=== PATIENT | female | born 1980 | race Caucasian/White ===

== ENCOUNTER → 2024-06-07 16:09 | Outpatient (CLI) | payer OTHER, SELFPAY ==
--- NOTE | 2024-06-07 16:16 | DIAB.GDA ---
Initial Gestational Diabetes Assessment Name: Sherry Ojeda Date: 06/07/24 Time: 410-515 Dx: Gestational Diabetes Provider: Chris CARLA: 08/04/24 Weeks: 31 Sherry presents for initial FH of T2Dm with father. Wants to know more about nutrition today. Has questions about sf substitutes. Drinking water and sweetened electrolytes sometimes and protein shake [employer]life. Since diagnosis x 1 week she has cut out bread, pasta, potatoes. Mostly eating meat and veggies. States she usually does not eat much CHO. Eating less than ACADEMIC SUPPORT COORDINATOR for CHO during and experiencing consistently elevated FBG. During her OB appt today she thought she was not checking FBG, but during this visit she says she forgot that she is checking and all are >95mg/dl. Diet Recall: 730a: 2 eggs, 2 turkey landers and half avocado, sprinkle cheese 12-130p: chicken Caesar salad, usually a salad. sn: nothing or veggies or celery and pb 530-6p: burger gilbert with salad tea unsweetened Anthropometrics: Ht: Wt: 227# at OB today Prepregnancy wt: 180# Physical Activity: Gym 3-4x per week for 1-2 hours, 2mi treadmill and 4mi on bike. Self-Monitoring Blood Glucose: Bought meter and strips out of pocket. using [employer] brand and would like to continue with use at this time. Checking 2 hours after meal. Plans to start FBG. Date Pre Post Pre Post Pre Post HS 05/31 104 131 104 06/01 105 133 113 3hr 06/02 97 115 95 06/03 102 95 94 121 06/04 103 86 99 06/05 103 114 06/06 104 107 06/07 106 88 Diabetes Medications: None Pertinent Labs: Completed glucose screen and OGTT. Unclear of results. Nutrition Rx: Carbohydrates: Meal: 30-45-g lunch and dinner; 30g breakfast Snack: 15-30g Nutrition Diagnosis: Altered nutrition related lab value r/t GDM dx aeb recent OGTT reported Inadequate CHO during r/t nutrition knowledge deficit aeb diet recall Intervention: This participant was very receptive. Provided appropriate educational handouts. Discussed the following topics: GDM pathophysiology and impact of hyperglycemia on mom and baby Risk for T2DM for mom and baby in the future Ways to reduce risk T2DM Plate Method, meal timing, carb counting, pairing macronutrients and spreading out CHO for better BG management Blood glucose goals (FBG: <95 and 1 hour <140 mg/dL or 2 hour <120mg/dl); importance of checking 4x per day (FBG and pc) Impact of macronutrients on blood glucose Recommended servings for carbohydrates at meals and snacks Brainstormed appropriate meal plan based on her food preferences Potential for insulin given FBG results Provided demo for injections and provided hand out for reinforcement Role of physical activity and following provider guidelines for safety Goals: Aim for 30g CHO at meals at this time Check BG 4x per day Follow-up: GARY CARR follow-up in one week via telehealth. RD will message OB recent BG results. Krystin Cosby RDN, LILLY Certified Diabetes Care and Religious Leader T: [phone] F: [phone] [email or web address] Thank you for this referral
== END ==
LOC: DIET 16:10
PROVIDERS: Referring Provider Student in an Organized Health Care Education/Training Program
DX: O24.419 Gestational diabetes mellitus in pregnancy, unspecified control (principal); Z3A.31 31 weeks gestation of pregnancy; Z71.3 Dietary counseling and surveillance; Z83.3 Family history of diabetes mellitus
CPT/HCPCS: 97802

== ENCOUNTER → 2024-06-11 08:35 | Outpatient (CLI) | payer OTHER, SELFPAY ==
--- NOTE | 2024-06-11 08:44 | DIAB.GDFU ---
Follow-up Gestational Diabetes Assessment Name: Sherry Ojeda Date: 06/11/24 Time: 830-9a Dx: Gestational Diabetes Provider: Chris CARLA: 08/04/24 Weeks: 32 Sherry presents for follow-up. Eating veggies most meals. Often skipping breakfast CHO. FBG seem to have improved though still having some elevations. Diet Recall: 730a: 2 eggs, 2 turkey landers and half avocado, sprinkle cheese +/- some rice 12-130p: leftover chx, veg, rice dish sn: nothing or veggies or celery and pb 530-6p: chx veg, rice dish OR protein, veg, sweet potatoes x 2/3 c Anthropometrics: Ht: Wt: 227# at OB 06/07 Prepregnancy wt: 180# Physical Activity: Gym 3-4x per week for 1-2 hours, 2mi treadmill and 4mi on bike. Self-Monitoring Blood Glucose: Bought meter and strips out of pocket. using [employer] and would like to continue with use at this time. Checking 2 hours after meal. FBG continue to be elevated, though today was in range. Will continue to check and message OB end of week if FBG are elevated. Date Pre Post Pre Post Pre Post HS 06/07 106 88 120 06/08 98 116 111 06/09 96 137 1hr 120 120 06/10 103 94 06/11 90 Diabetes Medications: None Pertinent Labs: Completed glucose screen and OGTT. Unclear of results. Nutrition Rx: Carbohydrates: Meal: 30-45-g lunch and dinner; 30g breakfast Snack: 15-30g Nutrition Diagnosis: Altered nutrition related lab value r/t GDM dx aeb recent OGTT reported Inadequate CHO during r/t nutrition knowledge deficit aeb diet recall - in progress Intervention: This participant was very receptive. Provided appropriate educational handouts. Discussed the following topics: BG results and trends When to contact OB with elevations Adding complex CHO to each meal Importance of checking FBG Goals: Aim for 30g CHO at meals at this time- improved Check BG 4x per day- improved Try a little fruit at breakfast- new Be sure to get FBG recorded- new Highlight where you are checking 1hour v 2hour pc- new If FBG are elevated this week, please message Dr. Perez on Monday- new Follow-up: GARY CARR follow-up in two weeks. Will see OB next week. Encouraged her to message OB by end of week if elevated FBG persist. Krystin Cosby RDN, [facility] Certified Diabetes Care and Retort Operator T: [phone] F: [phone] [email or web address] Thank you for this referral
== END ==
PROVIDERS: Referring Provider Student in an Organized Health Care Education/Training Program
DX: O24.419 Gestational diabetes mellitus in pregnancy, unspecified control (principal); Z3A.32 32 weeks gestation of pregnancy; Z71.3 Dietary counseling and surveillance
CPT/HCPCS: 97803

== ENCOUNTER → 2024-06-14 14:36 | Outpatient (CLI) | payer OTHER, SELFPAY ==
--- NOTE | 2024-06-14 14:37 | DI.US.S_ITS ---
PROCEDURE: US OB >= 14 WEEKS FETUS INDICATIONS: Low lying placenta; re-evaluate growth OUTSIDE/PRIOR DATING DATA: The calculations are made using the CARLA of 08/04/2024. TECHNIQUE: Real-time scanning was performed of the fetus, with image documentation and biometric measurements. Endovaginal scanning: Are performed COMPARISON: None. FINDINGS: General: A single living intrauterine gestation is present. Presentation: Vertex. Placenta: Placental position is anterior , without previa. Amniotic fluid index: 16.8 cm, normal range is 5-24 cm. Single deepest vertical pocket is 6.4 cm. heart rate: 149 beats per minute. Maternal cervical canal: 3.1 cm long. Normal lower limit is 2.5 cm. biometrics: Biparietal diameter: 8.1 cm, 32 weeks 3 days Head circumference: 30.8 cm, 34 weeks 2 days Abdominal circumference: 29.3 cm, 33 weeks 2 days Femur length: 6.3 cm, 32 weeks 5 days Clinically estimated gestational age: 32 weeks 5 days Composite gestational age from present scan: 33 weeks 1 days Estimated weight and percentile: 2126 g, 54% Other: Anterior uterine fibroid measuring 2.5 x 1.4 x 2.4 cm. IMPRESSION: 1. Single live intrauterine consistent with 33 weeks and 1 day. Normal growth with estimated weight in the 54th percentile. 2. Anterior placenta with inferior edge 5.5 cm from the internal cervical os. We strive to produce accurate, complete, and clear reports of imaging services. To assist us in improving patient care, this report was composed using standard report templates and voice recognition software. Therefore, it may contain abnormal punctuation, insertions and/or omissions. Occasional wrong-word or sound-alike substitutions may occur. Though we review the report and make efforts to correct it, we do recommend that the report be read carefully in proper context to recognize any text inaccuracies. Dictated by: Lisandro Christian M.D. on 06/14/2024 at 16:38 Approved by: Lisandro Christian M.D. on 06/14/2024 at 16:41
== END ==
PROVIDERS: Referring Provider Student in an Organized Health Care Education/Training Program; Visit Provider Student in an Organized Health Care Education/Training Program
DX: O44.43 Low lying placenta NOS or without hemorrhage, third trimester (principal); O24.419 Gestational diabetes mellitus in pregnancy, unspecified control; Z3A.33 33 weeks gestation of pregnancy
CPT/HCPCS: 76811

== ENCOUNTER → 2024-06-28 13:55 | Outpatient (CLI) | payer OTHER, SELFPAY ==
--- NOTE | 2024-06-28 14:02 | DIAB.GDFU ---
Addendum entered by Krystin Cosby 07/05/24 17:10: Called to check in on pt newly starting NPH. LVM. Original Note: Follow-up Gestational Diabetes Assessment Name: Sherry Ojeda Date: 06/28/24 Time: 2-3p Dx: Gestational Diabetes Provider: Chris CARLA: 08/04/24 Weeks: 34 Sherry presents for follow-up accompanied by her mother. Experiencing some elevated FBG and some elevations after breakfast. Overall, following lower carb recs, in fact breakfast is almost always under 30g CHO. Most dinner and lunches 30-45g CHO, reviewed food journal. States she spoke with OB today and some potential recs of starting insulin, which this RD agrees with. She is feeling very hesitant with starting insulin therapy. She completed a return insulin injection demo today and did very well. Last Visit Diet Recall: 730a: 2 eggs, 2 turkey landers and half avocado, sprinkle cheese +/- some rice 12-130p: leftover chx, veg, rice dish sn: nothing or veggies or celery and pb 530-6p: chx veg, rice dish OR protein, veg, sweet potatoes x 2/3 c Anthropometrics: Ht: Wt: 229# 06/28 227# at OB 06/07 Prepregnancy wt: 180# Physical Activity: Gym 3-4x per week for 1-2 hours, 2mi treadmill and 4mi on bike. Self-Monitoring Blood Glucose: checking FBG and 2 hour. If starting insulin, offered CGM option, she declined. Date Pre Post Pre Post Pre Post HS 06/22 90 122 1h 06/23 128 103 06/24 96 140 1h 104 109 10 113 94 107 06/26 96 94 120 06/27 96 120 116 99 06/28 95 103 Diabetes Medications: None Pertinent Labs: Completed glucose screen and OGTT. Unclear of results. Nutrition Rx: Carbohydrates: Meal: 30-45-g lunch and dinner; 30g breakfast Snack: 15-30g Nutrition Diagnosis: Altered nutrition related lab value r/t GDM dx aeb recent OGTT reported Inadequate CHO during r/t nutrition knowledge deficit aeb diet recall - in progress Intervention: This participant was very receptive. Provided appropriate educational handouts. Discussed the following topics: BG results and trends Return demo for insulin injection Discussion of importance of well managed BG during Medications for GDM in , gold std insulin recs and reducing risk of T2DM Recent blood sugar results and impact of food and hormones Review of macronutrient recommendations during Benefits, resources, and nutrition for recommendations for nutrition and physical activity recommendations for T2DM risk reduction - OGTT at 6-12 weeks - Checking blood sugars twice per week (goal: fasting <100 mg/dL and 2 hour pc <140 mg/dL)until 6 week checkup Goals: Try a little fruit at breakfast- met Be sure to get FBG recorded- improved/in progress Highlight where you are checking 1hour v 2hour pc- met If FBG are elevated this week, please message Dr. Perez on Monday- not met Chat with OB about insulin rx prn- new Check BG 4x per day- new Follow-up: GARY CARR follow-up in one week via phone and 2 weeks 1:1 Krystin Cosby RDN, LILLY Certified Diabetes Care and Contact Center Specialist T: [phone] F: [phone] [email or web address] Thank you for this referral
== END ==
PROVIDERS: Referring Provider Student in an Organized Health Care Education/Training Program
DX: O24.419 Gestational diabetes mellitus in pregnancy, unspecified control (principal); Z3A.34 34 weeks gestation of pregnancy; Z71.3 Dietary counseling and surveillance
CPT/HCPCS: G0108

== ENCOUNTER → 2024-07-12 18:13 | Outpatient (CLI) | payer OTHER, SELFPAY ==
--- NOTE | 2024-07-12 18:15 | DIAB.GDFU ---
Follow-up Gestational Diabetes Assessment Name: Sherry Ojeda Date: 07/12/24 Time: 5-530p Dx: Gestational Diabetes Provider: Chris CARLA: 08/04/24 Weeks: 36 Sherry presents for follow-up virtually via [facility]. Started insulin on 07/04 16u NPH started, FBG improved but still running 84-99mg/dl. Wants to eat dates, raspberries, and raspberry leaf tea to help with softening cervix per report. Curious about nutrition and impact on DM. Insulin storage questions. Eating more fruit per report. Anthropometrics: Ht: Wt: 229# 06/28 227# at OB 06/07 Prepregnancy wt: 180# Physical Activity: Gym 3-4x per week for 1-2 hours, 2mi treadmill and 4mi on bike. Self-Monitoring Blood Glucose: Ran out of strips, but plans to receive them tonight via mail. Often skipping lunch or eating a late breakfast. Offered CGM last visit, declined. Slight improved BG since starting NPH. Date Pre Post Pre Post Pre Post Notes 07/04 97 107 120 119 1 hour NPH that night 07/05 91 116 106 1 hour 120 07/06 99 106 07/07 84 120 07/08 95 103 100 07/09 93 120 106 07/10 95 119 120 07/11 99 139 1 hour after snack 120 07/12 95 113 Diabetes Medications: 16u NPH Pertinent Labs: Completed glucose screen and OGTT. Unclear of results. Nutrition Rx: Carbohydrates: Meal: 30-45-g lunch and dinner; 30g breakfast Snack: 15-30g Nutrition Diagnosis: Altered nutrition related lab value r/t GDM dx aeb recent OGTT reported Inadequate CHO during r/t nutrition knowledge deficit aeb diet recall - improved Nutrition and food related knowledge deficit r/t specific food questions and impact on BG aeb pt report- new Intervention: This participant was very receptive. Provided appropriate educational handouts. Discussed the following topics: BG results and trends Medication Management: insulin recs Date nutrition and carb content Pairing CHO and protein for snacks Tea impact on BG as long as unsweet Fruit with higher fiber, ie berries Goals: Chat with OB about insulin rx prn- met Check BG 4x per day- in progress Increase to 18u NPH tomorrow prn- new Pair pro with fruit- new Follow-up: RDN KRISHES follow-up in one week via messaging BG and then prn thereafter. Krystin Cosby RDN, LILLY Certified Diabetes Care and Reservoir Engineering Consultant T: [phone] F: [phone] [email or web address] Thank you for this referral
== END ==
PROVIDERS: Referring Provider Student in an Organized Health Care Education/Training Program
DX: O24.414 Gestational diabetes mellitus in pregnancy, insulin controlled (principal); Z3A.36 36 weeks gestation of pregnancy; Z71.3 Dietary counseling and surveillance
CPT/HCPCS: 97803

== ENCOUNTER → 2024-07-15 13:28 | Outpatient (CLI) | payer OTHER, SELFPAY ==
[2024-07-16 11:41] LABS: Strep Grp B PCR NEG for Grp B Strep
== END ==
PROVIDERS: Visit Provider Student in an Organized Health Care Education/Training Program
DX: Z36.85 Encounter for antenatal screening for Streptococcus B (principal)
CPT/HCPCS: 87653

== ENCOUNTER 2024-07-15 14:01 | Outpatient (CLI) | payer OTHER, SELFPAY ==
--- NOTE | 2024-07-15 15:30 | PM.OBTRLD ---
Visit Information Visit Information Date of evaluation: 07/15/24 Primary OB Provider: Sharron Perez Reason for Evaluation: Yes non-stress test [facility] Medical History (Updated 06/28/24 @ 17:02 by Sharron Perez DO) Osteomyelitis (~1985) Surgical History (Updated 06/04/24 @ 08:42 by Joanne Bryant RN) H/O dilation and curettage [place] teeth extracted Family History (Updated 06/04/24 @ 08:46 by Joanne Bryant RN) Father Diabetes mellitus Mother Hypothyroidism Ovarian cancer Grandmother Hypertension Diabetes mellitus Grandfather Hypertension Diabetes mellitus Grandfather Diabetes mellitus Social History marital status: number of children: 0 household members: spouse and family (parents) lives independently: Yes caregiver/support person: No housing: other (rented room in a house) pets and animals: No education level: high school (dropped out of 12th grade) occupational status: unemployed current occupational exposures/hazards: No special michelle needs: No travel history: recent (domestic only) seatbelt use: always helmet use: Yes water heater temp set < 120 deg: Yes working smoke detector in home: Yes fire extinguisher in home: Yes carbon monox detector in home: Yes firearms in home: No do you feel safe at home: Yes Smoking Status: Former smoker (quit smoking July 2023) Tobacco: How many years used: 10 (~1/2PPD) second hand exposure: No alcohol intake: former (not since ~2016) substance use type: does not use during the past year weight has: other (wide fluctuations) well-balanced diet: daily or most days daily servings fruits/ve or more times/day caffeine: No Type(s) of exercise: aerobic, bicycling (stationary bike) and resistance training frequency: 3-4 times per week Evaluation Evaluation Baseline heart rate: 140 Variability: Moderate (11-25) monitor accelerations: Present Monitor Decelerations: Absent Category of Tracing: Reactive Diagnosis, Plan/Disposition Final Diagnosis (1) Gestational diabetes mellitus, class A2: Status: Acute (2) Advanced maternal age (AMA), 40 years or greater: Status: Acute Plan/Disposition Plan: Follow up next week as scheduled OB Disposition: home
== END 2024-07-15 14:53 | disposition home or self-care (01) ==
LOC: LABOR 14:06 → OB 07-18 06:09
PROVIDERS: Referring Provider Student in an Organized Health Care Education/Training Program; Visit Provider Student in an Organized Health Care Education/Training Program
DX: O24.414 Gestational diabetes mellitus in pregnancy, insulin controlled (principal); O09.513 Supervision of elderly primigravida, third trimester; Z3A.37 37 weeks gestation of pregnancy
CPT/HCPCS: 59025; 87653; G0378; G0379

== ENCOUNTER 2024-07-22 14:09 | Observation (INO) | payer OTHER, SELFPAY ==
--- NOTE | 2024-07-22 15:00 | PM.OBTRLD ---
Visit Information Visit Information Date of evaluation: 07/22/24 Primary OB Provider: Sharron Perez On-call OB Provider: Kera Hernandez Reason for Evaluation: Yes non-stress test non-stress test reason: diabetes (Insulin requiring) Vital Signs Vital Signs: Blood pressure 132/76, pulse 74 PFSH Medical History (Updated 07/22/24 @ 15:03 by Kera Hernandez MD) Osteomyelitis (~1985) Surgical History (Updated 06/04/24 @ 08:42 by Joanne Bryant, RN) H/O dilation and curettage [place] teeth extracted Family History (Updated 06/04/24 @ 08:46 by Joanne Bryant, RN) Father Diabetes mellitus Mother Hypothyroidism Ovarian cancer Grandmother Hypertension Diabetes mellitus Grandfather Hypertension Diabetes mellitus Grandfather Diabetes mellitus Social History marital status: number of children: 0 household members: spouse and family (parents) lives independently: Yes caregiver/support person: No housing: other (rented room in a house) pets and animals: No education level: high school (dropped out of 12th grade) occupational status: unemployed current occupational exposures/hazards: No special michelle needs: No travel history: recent (domestic only) seatbelt use: always helmet use: Yes water heater temp set < 120 deg: Yes working smoke detector in home: Yes fire extinguisher in home: Yes carbon monox detector in home: Yes firearms in home: No do you feel safe at home: Yes Smoking Status: Former smoker (quit smoking July 2023) Tobacco: How many years used: 10 (~1/2PPD) second hand exposure: No alcohol intake: former (not since ~2016) substance use type: does not use during the past year weight has: other (wide fluctuations) well-balanced diet: daily or most days daily servings fruits/ve or more times/day caffeine: No Type(s) of exercise: aerobic, bicycling (stationary bike) and resistance training frequency: 3-4 times per week Evaluation Evaluation Baseline heart rate: 130 Variability: Moderate (11-25) monitor accelerations: Present Monitor Decelerations: Absent Category of Tracing: Reactive Status: Category l Diagnosis, Plan/Disposition Final Diagnosis (1) Gestational diabetes mellitus, class A2: Status: Acute (2) Advanced maternal age (AMA), 40 years or greater: Status: Acute (3) 38 weeks gestation of : Status: Acute Plan/Disposition Plan: Reactive nonstress test. Continue routine OB visits and NSTs OB Disposition: home
== END 2024-07-22 15:00 | disposition home or self-care (01) ==
PROVIDERS: Admitting Provider Student in an Organized Health Care Education/Training Program; Referring Provider Student in an Organized Health Care Education/Training Program; Visit Provider Student in an Organized Health Care Education/Training Program
DX: O24.414 Gestational diabetes mellitus in pregnancy, insulin controlled (principal); O09.513 Supervision of elderly primigravida, third trimester; Z3A.38 38 weeks gestation of pregnancy
CPT/HCPCS: 59025; G0378; G0379

== ENCOUNTER 2024-07-30 12:57 | Outpatient (CLI) | payer OTHER, SELFPAY ==
--- NOTE | 2024-07-30 20:40 | PM.OBTRLD ---
Visit Information Visit Information Date of evaluation: 07/30/24 Primary OB Provider: Sharron Perez Reason for Evaluation: Yes non-stress test COUNTS INCLUDE 234 BEDS AT [facility] Medical History (Updated 07/30/24 @ 20:38 by Sharron Perez DO) Osteomyelitis (~1985) Surgical History (Updated 06/04/24 @ 08:42 by Joanne Bryant RN) H/O dilation and curettage [place] teeth extracted Family History (Updated 06/04/24 @ 08:46 by Joanne Bryant RN) Father Diabetes mellitus Mother Hypothyroidism Ovarian cancer Grandmother Hypertension Diabetes mellitus Grandfather Hypertension Diabetes mellitus Grandfather Diabetes mellitus Social History marital status: number of children: 0 household members: spouse and family (parents) lives independently: Yes caregiver/support person: No housing: other (rented room in a house) pets and animals: No education level: high school (dropped out of 12th grade) occupational status: unemployed current occupational exposures/hazards: No special michelel needs: No travel history: recent (domestic only) seatbelt use: always helmet use: Yes water heater temp set < 120 deg: Yes working smoke detector in home: Yes fire extinguisher in home: Yes carbon monox detector in home: Yes firearms in home: No do you feel safe at home: Yes Smoking Status: Former smoker (quit smoking July 2023) Tobacco: How many years used: 10 (~1/2PPD) second hand exposure: No alcohol intake: former (not since ~2016) substance use type: does not use during the past year weight has: other (wide fluctuations) well-balanced diet: daily or most days daily servings fruits/ve or more times/day caffeine: No Type(s) of exercise: aerobic, bicycling (stationary bike) and resistance training frequency: 3-4 times per week Evaluation Evaluation Baseline heart rate: 140 Variability: Moderate (11-25) monitor accelerations: Present Monitor Decelerations: Absent Contraction Frequency (minutes): 0 Category of Tracing: Reactive Diagnosis, Plan/Disposition Final Diagnosis (1) Gestational diabetes mellitus, class A2: Status: Acute (2) Advanced maternal age (AMA), 40 years or greater: Status: Acute Plan/Disposition OB Disposition: home
== END 2024-07-30 13:55 | disposition home or self-care (01) ==
LOC: LABOR 13:02 → OB 16:09
PROVIDERS: Referring Provider Student in an Organized Health Care Education/Training Program; Visit Provider Student in an Organized Health Care Education/Training Program
DX: O24.419 Gestational diabetes mellitus in pregnancy, unspecified control (principal); O09.513 Supervision of elderly primigravida, third trimester; Z3A.39 39 weeks gestation of pregnancy
CPT/HCPCS: 59025; G0378; G0379

== ENCOUNTER 2024-08-05 19:44 | Inpatient (IN) | payer OTHER, SELFPAY ==
[2024-08-05 20:32] VITALS: BP 140/77
[2024-08-05 22:39] LABS: Add Manual Diff / Slide Review NO; Basophils Absolute Auto 0 /uL (0-100); Basophils Percent Auto 0.3 % (0-2); Eosinophils Absolute Auto 0 /uL (0-450); Eosinophils Percent Auto 0.5 % (2-4); Hematocrit 36.8 % (36-46); Hemoglobin 12.5 g/dL (12.0-16.0); Lymphocytes Absolute Auto 1400 /uL (1100-4500); Lymphocytes Percent Auto 14.8 % (25-40); Mean Corpuscular HGB Conc 33.8 % (30-36); Mean Corpuscular Hemoglobin 30.8 PG (26-34); Monocytes Absolute Auto 600 /uL (0-900); Neutrophils Absolute Auto 7600 /uL (1500-7000); Neutrophils Percent Auto 78.4 % (50-75); Platelet Count 176 X10^3/uL (150-400); Red Blood Cell Count 4.05 X10^6/uL (4.0-5.2); Red Cell Distribution Width 13.3 % (11.6-14.8); White Blood Cell Count 9.7 X10^3/uL (4.5-11.0)
[2024-08-05] MEDS: miSOPROStoL 25 MCG TABLET VAG (23:30)
[2024-08-06] MEDS: miSOPROStoL 25 MCG TABLET VAG ×3 (03:30→12:40)
--- NOTE | 2024-08-06 07:59 | P.HPOB_ITS ---
OB HPI Date/Time Date of admission: 08/06/24 Date Patient Seen: 08/06/24 Time Patient Seen: 08:00 History of Present Condition Chief complaint: induction of labor CARLA Calculator 2 Estimated Delivery Date Method Current WG Current Estimate 08/04/24 Manual 40w 2d Other Estimates 07/08/24 LMP (Uncertain) 44w 1d : 2 Para: 0 Narrative: 43yo at 40+2wks admitted overnight for induction of labor due to GDMA2 and AMA (>40yo). She reports feeling some cramping with cytotec, otherwise denies vaginal bleeding or leaking fluid. care: good care Dating criteria OB: LMP confirmed by 1st trimester US Ultrasounds: normal mid trimester US Obstetrical complications: gestational diabetes Medical complications OB: none Narrative: Ultrasound Ultrasound Details:: US 06/14/24: resolved low-lying placenta, EFW 54%ile Specific Issues/Plans (DO NOT discuss TAB in front of anyone else) [x] cfDNA- low risk XX; [x] CF/SMA/alpha thal/SC- neg Gestational Diabetes A2 (on 18u NPH qHS):?1hr 212, 3hr 113/267/176/113;? 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 [?x ] growth sono -54% at 32wks;?[? ] IOL (39 ? 39+6 weeks) AMA (>40yo):?? [ x] growth sono 32wks- 54%ile; [x? ] Weekly NSTs at 36 wks; [x? 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 and low lying placenta Prefers unmedicated delivery if vaginal delivery possible Leonel Assigned to Chris Indications Indication for induction OB: gestational diabetes and other (advanced maternal age) Preadmission Labs Last OB Lab Results: 2 Blood Type A Positive 08/05/24 22:16 Antibody Screen Negative 08/05/24 22:16 Hct 36.8 % (36-46) 08/05/24 22:06 Hgb 12.5 g/dL (12.0-16.0) 08/05/24 22:06 Group B Strep (PCR) Neg for grp b strep 07/15/24 13:28 -: Chlamydia screen: negative, Gonorrhea screen: negative and Urine: negative Genetic Screens: Cell-free DNA: Normal External Labs -: Urine: negative Prior (ies) Past Pregnancies Del. Date GA/Weeks Labor Lgth Wt Sex Route Outcome Anesthesia Place Delv Breastfeed Preg Comp Name 07/17/99 ? elective Delivery Date: 07/17/99 Last Updated by: Joanne Bryant RN D&C, no complications Evaluation Evaluation Baseline heart rate: 120 Variability: Moderate (11-25) monitor accelerations: Present Monitor Decelerations: Absent Status: Category l Dilation: Closed Effacement: 0-30% station: -3 Position of cervix: posterior Consistency: soft Durán score: 2 PFSH Medical History (Updated 07/30/24 @ 20:38 by Sharron Perez DO) Osteomyelitis (~1985) Surgical History (Updated 06/04/24 @ 08:42 by Joanne Bryant RN) H/O dilation and curettage [place] teeth extracted Family History (Updated 06/04/24 @ 08:46 by Joanne Bryant RN) Father Diabetes mellitus Mother Hypothyroidism Ovarian cancer Grandmother Hypertension Diabetes mellitus Grandfather Hypertension Diabetes mellitus Grandfather Diabetes mellitus Social History marital status: number of children: 0 household members: spouse and family (parents) lives independently: Yes caregiver/support person: No housing: other (rented room in a house) pets and animals: No education level: high school (dropped out of 12th grade) occupational status: unemployed current occupational exposures/hazards: No special michelle needs: No travel history: recent (domestic only) seatbelt use: always helmet use: Yes water heater temp set < 120 deg: Yes working smoke detector in home: Yes fire extinguisher in home: Yes carbon monox detector in home: Yes firearms in home: No do you feel safe at home: Yes Smoking Status: Former smoker Tobacco: How many years used: 10 (~1/2PPD) second hand exposure: No alcohol intake: former (not since ~2016) substance use type: does not use during the past year weight has: other (wide fluctuations) well-balanced diet: daily or most days daily servings fruits/ve or more times/day caffeine: No Type(s) of exercise: aerobic, bicycling (stationary bike) and resistance training frequency: 3-4 times per week Meds Home Medications and Allergies Home Medications Medication Instructions Recorded Confirmed Type docosahexaenoic acid 200 mg 400 mg PO DAILY 06/04/24 07/30/24 History capsule (DHA from Algae) vitamin-ferrous sulfate tab PO 06/04/24 07/30/24 History 27 mg iron-folic acid 0.8 mg tablet pen needle, diabetic 31 gauge x #100 ea 07/04/24 07/30/24 Rx 5/16 (Comfort EZ Pen [place]) insulin NPH isoph U-100 human 100 18 unit SUBCUT .qhs 08/05/24 08/05/24 History unit/mL (3 mL) subcutaneous pen (Humulin N NPH U-100 Insulin KwikPen) Allergies Allergy/AdvReac Type Severity Reaction Status Date / Time Penicillins Allergy Intermediate Hives Verified 07/30/24 14:06 Review of Systems Review of Systems ROS: Yes All systems reviewed with the patient and are negative except as otherwise documented OB Exam Vital signs Blood Pressure: 140/77 Pulse Rate: 93 Temperature: 98.2 F HENMT Head: normal to inspection Resp Effort & Inspection: normal respiratory effort and able to speak in complete sentences Cardio Rate: regular rate Rhythm: regular rhythm Extremities Lower extremity: Yes normal to inspection GI Other: gravid, nontender, nondistended Other: EFW 3800g Objective Labs 08/05/24 22:06 Labs: Laboratory Results - last 24 hr 08/05/24 08/05/24 22:06 22:16 WBC 9.7 RBC 4.05 Hgb 12.5 Hct 36.8 MCV 91.0 MCH 30.8 MCHC 33.8 RDW 13.3 Plt Count 176 Neut % (Auto) 78.4 H Lymph % (Auto) 14.8 L [place] % (Auto) 6.0 Eos % (Auto) 0.5 L Baso % (Auto) 0.3 Neut # (Auto) 7600 H Lymph # (Auto) 1400 [place] # (Auto) 600 Eos # (Auto) 0 Baso # (Auto) 0 Blood Type A Positive Antibody Screen Negative Assessment and Plan Assessment and Plan Assessment and Plan narrative: 43yo at 40+2wks admitted for induction of labor. Her induction was started overnight with cytotec, last dose this morning at 0745. -CBC, T&S on admission -continuous EFM -epidural PRN -GBS neg, ppx not indicated -PPH risk low -VTE risk low, SCDs with epidural -anticipate L&D Counseling: Common procedures and interventions related to the management of were explained to the patient, including assistance at vaginal delivery with episiotomy, vacuum, or forceps, use of medications to stop premature labor or induce labor, and assessment including auscultation (listening to the heart), use of electronic monitoring (external and / or internal), and use of scalp electrode and/or intrauterine pressure catheter.? It was also explained that approximately 20-30% of mothers have a need for delivery during their labor course. It was explained to the patient that , labor and delivery are ordinarily normal physiological events and can be expected to provide a healthy outcome for mother and baby in the majority of cases. However, there are complications that may arise during , labor, and delivery, such as: hemorrhage requiring administration of blood and/or blood products, surgical intervention, possibly even hysterectomy for life-saving purposes; possibility of infection requiring antibiotics, prolonged hospital stay, and rarely surgical intervention; possibility of blood clots;? possibility of retained products of conception requiring surgical intervention;? possibility of serious tears or injury to the vagina, cervix, perineum, or rectum;? possibility of injury to abdominal structures if delivery is required;? and rarely maternal or may occur. Time-Based Coding :: [30min] spent with patient and on the chart (including review of chart, obtaining history, exam, reviewing outside data, placing orders, documenting exam and treatment plan, and counseling patient) on [08/06/24].
[2024-08-06 08:17] VITALS: BP 140/77; PULSE 93; TEMP 36.8
--- NOTE | 2024-08-06 12:17 | P.PNOB_ITS ---
Date/Time Date Patient Seen: 08/06/24 Time Patient Seen: 12:17 Pain Control Pain control: tolerating well Pelvic Exam Dilation (cm): 0 Effacement (%): 25 station: -3 Contractions Contraction frequency (min): 2 Contraction pattern: Irregular Contraction intensity: Moderate Status status: Category l Heart Rate Baseline: 130 Monitor Accelerations: Present Monitor Decelerations: Absent Monitor Variability: Moderate Assessment and Plan Assessment: induction ongoing Plan: continuous present management Comments: 43yo at 40+2wks undergoing induction of labor. She is s/p 3 doses of v aginal cytotec. On my exam now, she is externally dilated, but not open internally yet. Otherwise her cervix is soft and effacing. Also noted to have several mild range blood pressures this morning. -recommend PIH labs drawn -plan for 1 more dose of cytotec, then hopefully placing a ayon balloon this afternoon -discussed plan of care, and all her and her family members questions were answered at this time
--- NOTE | 2024-08-06 16:35 | PM.OBPNLAB ---
Date/Time Date Patient Seen: 08/06/24 Time Patient Seen: 16:36 Pain Control Pain control: tolerating well Pelvic Exam Dilation (cm): 1 Effacement (%): 25 station: -3 Amniotic membrane status: Intact Contractions Contraction frequency (min): 2 Contraction pattern: Irregular Contraction intensity: Moderate Status status: Category l Heart Rate Baseline: 130 Monitor Accelerations: Present Monitor Decelerations: Absent Monitor Variability: Moderate Assessment and Plan Assessment: induction ongoing Plan: continuous present management Comments: 43yo at 40+2wks undergoing induction of labor. She is s/p 4 doses of vaginal cytotec. Ayon balloon was plaed with 60cc of saline. Patient tolerated well. Has continued to have mild range blood pressures today, labs have not been drawn yet. Asymptomatic. -advised that PIH labs be done in the next hour, with an IV start placed -discussed with patient starting pitocin with the ayon balloon, and patient was hesitant to start at this time; will need to continue to educate regarding indication and reasoning for pitocin augmentation -discussed plan of care, and advised patient that I will be signing over her labor management to my colleague Dr. Guerra
[2024-08-06] MEDS: LACTATED RINGERS 1,000 ML 100 ML IV (17:45)
[2024-08-06] MEDS: OXYTOCIN PREMIX 30 UNIT/500 ML PLAST..BAG IV (17:45)
[2024-08-06 18:04] LABS: Add Manual Diff / Slide Review NO; Basophils Absolute Auto 100 /uL (0-100); Basophils Percent Auto 0.6 % (0-2); Eosinophils Absolute Auto 0 /uL (0-450); Eosinophils Percent Auto 0.3 % (2-4); Hematocrit 39.2 % (36-46); Hemoglobin 13.1 g/dL (12.0-16.0); Lymphocytes Absolute Auto 1300 /uL (1100-4500); Lymphocytes Percent Auto 12.4 % (25-40); Mean Corpuscular HGB Conc 33.5 % (30-36); Mean Corpuscular Hemoglobin 30.7 PG (26-34); Mean Corpuscular Volume 91.7 fL (80-100); Monocytes Absolute Auto 600 /uL (0-900); Monocytes Percent Auto 5.3 % (3-14); Neutrophils Absolute Auto 8500 /uL (1500-7000); Neutrophils Percent Auto 81.4 % (50-75); Platelet Count 184 X10^3/uL (150-400); Red Blood Cell Count 4.27 X10^6/uL (4.0-5.2); Red Cell Distribution Width 13.3 % (11.6-14.8); White Blood Cell Count 10.5 X10^3/uL (4.5-11.0)
[2024-08-06 18:15] LABS: Alanine Aminotransferase 34 IU/L (<35); Albumin 3.7 g/dL (3.5-5.0); Albumin Globulin Ratio 1.2 (1.0-2.8); Alkaline Phosphatase 161 U/L (38-126); Aspartate Aminotransferase 35 IU/L (14-36); BUN Creatinine Ratio 22.2 (6-22); Bilirubin Total 0.2 mg/dL (0.2-1.3); Blood Urea Nitrogen 14 mg/dL (7-17); Calcium 9.7 mg/dL (8.4-10.2); Carbon Dioxide 18 mmol/L (22-32); Chloride 106 mmol/L (98-107); Estimated Glomerular Filt Rate > 60 mL/min (>60); Glucose 92 mg/dL (70-100); HEMOLYSIS < 15 (0-50); Potassium 4.1 mmol/L (3.4-5.1); Sodium 132 mmol/L (137-145); Total Protein 6.7 g/dL (6.3-8.2)
[2024-08-06 18:50] LABS: Creatinine Urine Random 78.39 mg/dL; Protein (Total) Urine Random 23 mg/dL (0-12); Protein Creatinine Ratio Urine 0.29 GRAM/24H
[2024-08-06 21:42] LABS: Uric Acid 3.4 mg/dL (2.5-6.2)
[2024-08-07] MEDS: INSULIN LISPRO 100 UNIT/ML 3ML VIAL SUBCUT (09:49)
--- NOTE | 2024-08-07 11:01 | PM.OBPNLAB ---
Date/Time Date Patient Seen: 08/07/24 Time Patient Seen: 10:15 Pain Control Pain control: tolerating well Pelvic Exam Dilation (cm): 4 Effacement (%): 50 station: -3 Amniotic membrane status: Intact Contractions Contractions on admission: none Monitor mode: External Pitocin rate (mU/min): 17 Contraction frequency (min): 3 Contraction pattern: Irregular Contraction intensity: Moderate Status status: Category l Heart Rate Baseline: 140 Monitor Accelerations: Present Monitor Decelerations: Absent Monitor Variability: Moderate Assessment and Plan Assessment: induction ongoing Plan: continuous present management Comments: 43yo at 40w3d undergoing induction of labor for GDMA2. #mIOL: - She is s/p 4 doses of vaginal cytotec. Patricio balloon was placed, fell out within an hour yesterday evening then pitocin started - pit currently at 17mu/min - SVE unchanged from 6pm last night when Pit was started - recommended AROM with IUPC placement but pt declines #GDMA2: continue present management per primary OB - glucose checks q4h in latent labor, q2h in active - SSI correction
[2024-08-07] MEDS: LACTATED RINGERS 1,000 ML 100 ML IV ×2 (13:08→20:16)
--- NOTE | 2024-08-07 13:25 | PM.OBPNLAB ---
Date/Time Date Patient Seen: 08/07/24 Time Patient Seen: 12:45 Pelvic Exam Dilation (cm): 4 Effacement (%): 50 station: -3 Amniotic membrane status: Intact Contractions Contractions on admission: none Monitor mode: External Pitocin rate (mU/min): 25 Contraction frequency (min): 3 Contraction pattern: Irregular Contraction intensity: Moderate Status status: Category l Heart Rate Baseline: 130 Monitor Accelerations: Present Monitor Decelerations: Absent Monitor Variability: Moderate Assessment and Plan Assessment: induction ongoing Plan: continuous present management Comments: 43yo at 40w3d undergoing induction of labor for GDMA2. Discussion held [facility] pt about AROM for continued augmentation and she declines. Reviewed risks of hemorrhage with prolonged pit use. Also discussed risk of arrest of desecent/dilation as possible indicator of LGA. #mIOL: - She is s/p 4 doses of vaginal cytotec. Patricio balloon was placed, fell out within an hour yesterday evening then pitocin started - pit currently at 17mu/min - SVE unchanged from 6pm last night when Pit was started - recommended AROM with IUPC placement but pt declines so will continue to increase pit and repeat discussion in 2-3 hours after maxed out on pit - FHT reassuring #GDMA2: continue present management per primary OB - glucose checks q4h in latent labor, q2h in active - SSI correction - Last growth scan at 33 wks showing EGA at 54%ile # AMA - cfDNA low risk
--- NOTE | 2024-08-07 19:00 | P.PNOB_ITS ---
Date/Time Date Patient Seen: 08/07/24 Time Patient Seen: 19:00 Pain Control Pain control: tolerating well Pelvic Exam Dilation (cm): 4 Effacement (%): 50 station: -3 Amniotic membrane status: Intact Contractions Contractions on admission: none Monitor mode: External Pitocin rate (mU/min): 30 Contraction frequency (min): 3 Contraction pattern: Irregular Contraction intensity: Moderate Status status: Category l Heart Rate Baseline: 130 Monitor Accelerations: Present Monitor Decelerations: Absent Monitor Variability: Moderate Assessment and Plan Plan: Comments: 43yo at 40w3d undergoing induction of labor for GDMA2. Discussion held [facility] pt about AROM for continued augmentation and she declines. Reviewed risks of hemorrhage with prolonged pit use. Also discussed risk of arrest of desecent/dilation as possible indicator of LGA. Pt elects for primary CS for failure to progress after 24 hours of pitocin with no change. #mIOL: - She is s/p 4 doses of vaginal cytotec. Patricio balloon was placed, fell out within an hour yesterday evening then pitocin started - pit currently at 30mu/min - SVE unchanged from 6pm last night when Pit was started - recommended AROM with IUPC placement but pt declines, requesting CS - FHT reassuring #GDMA2: continue present management per primary OB - glucose checks q4h in latent labor, q2h in active - SSI correction - Last growth scan at 33 wks showing EGA at 54%ile # AMA - cfDNA low risk counseling: It was explained to the patient that a section is a surgery to deliver the baby through an incision in the abdominal wall and uterus.? All procedures can be associated with risk and unforeseen complications, which can be immediate or delayed.? Risks and complications of section include, but are not limited to:? infection of the uterus, pelvic organs, or skin; inadvertent injury to internal organs such as the bowel, bladder, or possibly even the baby; blood loss, transfusion, and/or life-threatening hemorrhage requiring hysterectomy; blood clots in the legs, pelvic organs, or lungs; adverse reaction to medications or anesthesia during surgery; development of placenta accreta spectrum in a subsequent ; and increased risk of section in a subsequent .
[2024-08-07] MEDS: CEFAZOLIN 2 GM/100 ML PREMIX 100 ML IV (19:35)
--- NOTE | 2024-08-07 19:59 | SUR.OPER ---
Supine on Padded OR bed, head on pillow, safety belt at thigh, arms secured on padded arm boards at <90 degrees abduction. Bump under right buttock. Legs uncrossed with pillow under knees, gel pad to heels, tape over blanket to lower legs.
--- NOTE | 2024-08-07 20:06 | SUR.OPER ---
BABY GIRL BORN AT 2005
[2024-08-07] MEDS: ACETAMINOPHEN IV 1,000 MG/100 ML VIAL 400 MG IV (20:11)
[2024-08-07 20:47] VITALS: BP 115/66; PULSE 78; RESP 8; TEMP 36.4; O2SAT 96
[2024-08-07 20:52] VITALS: BP 119/70; PULSE 76; RESP 17; O2SAT 97
--- NOTE | 2024-08-07 20:55 | PM.OBCS.1 ---
Operative Date/Time/Diagnoses Date of procedure: 08/07/24 Time of procedure: 20:00 Pre-op diagnosis: failure to progress Post-op diagnosis: same Procedure & Clinicians Procedure: primary low trasnverse Same procedure as scheduled: Yes Indications: Failure to progress Surgeon: Sylwia Valenzuela Click Yes if Unassisted: No Wheel Of Fortune Dealer: Mehul Crenshaw Reason for Wheel Of Fortune Dealer: Wheel Of Fortune Dealer required for the safe, effective, and timely completion of this surgery. The seed analysis laboratory assistant was necessary to retract upon entry into the abdomen and uterus. Assisted with delivery of the with fundal pressure. Assisted with closure with retraction, holding suture, and closure of the contralateral fascia. Anesthesia Type: Spinal Operative Notes Findings: Normal ovaries, and tubes. Uterus with multiple subserosal fibroids Closure Type: primary Specimen(s): cord blood Intraoperative meds administered: Duramorph, Ketorolac and Pitocin Applied: Catheter Estimated Blood Loss (mL): 600 Blood products transfused: none Procedure in detail: OPERATIVE COURSE: The patient was taken to the operating room where spinal anesthesia was placed. She was then prepared and draped in the normal sterile fashion in the dorsal supine position with a leftward tilt. Anesthesia was tested and found to be adequate. A Pfannensteil skin incision was then made with the scalpel and carried through to the underlying layer of fascia with the scalpel. The fascia was incised in the midline and the incision extended laterally with the Cardoza scissors. The superior aspect of the fascial incision was then grasped with Leana clamps, elevated with the help of the surgical territory manager, and the underlying rectus muscles dissected off bluntly and sharply where needed. Attention was then turned to the inferior aspect of the incision which, in a similar fashion, was grasped, tented up with Leana clamps, and the rectus muscle dissected off bluntly. The rectus muscles were then in the midline, and the peritoneum was identified and entered bluntly. The peritoneal incision was then extended with good visualization of the bladder. Retraction was provided by the surgical territory manager. The bladder blade was then inserted and the vesicouterine peritoneum identified, grasped with pick-ups and entered sharply with the Metzenbaum scissors. The incision was then extended laterally and the bladder flap created digitally. The bladder blade was then reinserted and the lower uterine segment incised in a transverse fashion with the scalpel, with the surgical territory manager providing suction. The uterine incision was then extended superolaterally by pulling superolaterally on both sides. Membranes were ruptured and fluid was clear. The bladder blade was removed the infant's head was flexed out of DAMARIS position and delivered atraumatically, with fundal pressure by the surgical territory manager. The nose and mouth were suctioned with bulb suction and the cord was clamped and cut. The nose and mouth were suctioned with bulb suction and the cord was clamped and cut after a 60 second delay. The was handed off to the waiting nursing staff. Cord blood was collected. Time of delivery was 20:06. APGARS were 8 and 9 at one and five minutes respectively. The placenta was then delivered with gentle cord traction. The uterus was then exteriorized and cleared of all clots and debris. The uterine incision was repaired with 0 Vicryl in a running, locked fashion. A second layer of the same suture was used to obtain excellent hemostasis. The uterus was returned to the abdomen. The gutters were cleared of all clots. Hysterotomy was investigated and found to be hemostatic. The fascia was reapproximated with 0 Vicryl in a running fashion. The subcutaneous tissue was reapproximated with 3-0 vicryl. The skin was closed with 4-0 monocryl. The surgical territory manager helped with retraction during closures. SPONGE AND NEEDLE COUNTS: Correct x3. DRESSING: Aquacel ANTICOAGULATION: SCDs applied prior to Surgery Preop antibiotics given (see MAR). The patient was taken to recovery room having tolerated procedure well. Complications: none Post-operative Condition: stable Disposition: PACU Aftercare: routine postop
[2024-08-07 20:57] VITALS: BP 126/76; PULSE 82; RESP 12; O2SAT 97
[2024-08-07 21:02] VITALS: BP 122/63; PULSE 82; RESP 12; O2SAT 96
[2024-08-07] MEDS: ACETAMINOPHEN 325 MG TABLET 650 MG PO (22:48)
[2024-08-08] MEDS: KETOROLAC 30 MG/ML VIAL IV ×3 (02:28→14:18)
[2024-08-08] MEDS: ACETAMINOPHEN 325 MG TABLET 650 MG PO ×3 (05:06→20:36)
[2024-08-08 06:35] LABS: Add Manual Diff / Slide Review NO; Basophils Absolute Auto 100 /uL (0-100); Basophils Percent Auto 0.5 % (0-2); Eosinophils Absolute Auto 0 /uL (0-450); Hematocrit 30.4 % (36-46); Hemoglobin 10.1 g/dL (12.0-16.0); Lymphocytes Absolute Auto 900 /uL (1100-4500); Lymphocytes Percent Auto 7.1 % (25-40); Mean Corpuscular HGB Conc 33.4 % (30-36); Mean Corpuscular Hemoglobin 30.5 PG (26-34); Mean Corpuscular Volume 91.4 fL (80-100); Monocytes Absolute Auto 500 /uL (0-900); Monocytes Percent Auto 4.2 % (3-14); Neutrophils Absolute Auto 10600 /uL (1500-7000); Neutrophils Percent Auto 88.2 % (50-75); Platelet Count 151 X10^3/uL (150-400); Red Blood Cell Count 3.32 X10^6/uL (4.0-5.2); Red Cell Distribution Width 12.8 % (11.6-14.8); White Blood Cell Count 12.1 X10^3/uL (4.5-11.0)
--- NOTE | 2024-08-08 08:05 | P.PNOB_ITS ---
Subjective - OB Subjective Patient comments: pain well controlled and tolerating diet [place] baby status: doing well and nursing well [place] feeding status: exclusively breast feeding Date Patient Seen: 08/08/24 Time Patient Seen: 07:30 Interval history: pain well controlled with oral meds. Not sure of control method, previously did not use control and took many years to become . Bleeding less than a period. Has been able to ambulate. Patricio removed one hour ago so has not yet voided Exam Vital Signs (past 8 hours): Oxygen Delivery Method Room Air Narrative Exam Narrative: Gen: well appearing, NAD Skin: no rashes or pallor Abd: appropriate post-op tenderness, fundus firm below Umbilicus. Dressing clean and dry MSK: scant edema Objective Labs 08/08/24 06:25 08/06/24 17:20 Labs: Laboratory Results - last 24 hr 08/08/24 06:25 WBC 12.1 H RBC 3.32 L Hgb 10.1 L Hct 30.4 L MCV 91.4 MCH 30.5 MCHC 33.4 RDW 12.8 Plt Count 151 Neut % (Auto) 88.2 H Lymph % (Auto) 7.[address] [place] % (Auto) 4.2 Eos % (Auto) 0.0 L Baso % (Auto) 0.5 Neut # (Auto) 78209 H Lymph # (Auto) [address] [place] # (Auto) 500 Eos # (Auto) 0 Baso # (Auto) 100 Assessment & Plan Plan day: 1 plan OB: routine care and routine postop care Comments: 43 yo G2 now P2 on POD1 following primary LTCS following unsuccessful induction of labor for GDMA2. CS performed due to maternal request after 3 day induction and lack of cervical change - Pain well controlled on oral medications, continue tylenol, ibuprofen and PRN oxycodone - Bleeding minimal - control plans: - f/up for f/up at 6week PP visit - plan for 6 week PP GTT for GDMA2 vs DM2 assessment - anticipate dispo tomorrow Time-Based Coding :: 25 spent with patient and on the chart (including review of chart, obtaining history, exam, reviewing outside data, placing orders, documenting exam and treatment plan, and counseling patient) on [DATE].
[2024-08-08] MEDS: DOCUSATE 100 MG CAPSULE PO (08:38)
[2024-08-08] MEDS: PRENATAL VIT,CALC/IRON/FOLIC 1 TABLET 1 TAB PO (08:38)
[2024-08-08] MEDS: FERROUS SULFATE 325 MG TABLET PO ×2 (08:38→22:23)
--- NOTE | 2024-08-08 13:31 | PM.OBPN.1 ---
Subjective - OB Subjective Patient comments: incisional pain, tolerating diet and flatus present [place] baby status: doing well and nursing well feeding status: exclusively breast feeding Narrative: Postoperative day 1 section for failure to progress Date Patient Seen: 08/08/24 Time Patient Seen: 13:31 Interval history: Patient underwent a section for failure to progress on 08/07/2024. She is urinating after Patricio removed. She is ambulatory. No nausea. She is passing gas. She is getting more comfortable with . Exam Vital Signs (past 8 hours): Blood pressure 128/64, pulse 67, temperature 97.5? Oxygen Delivery Method Room Air Narrative Exam Narrative: Abdomen is soft, nontender. Uterus is firm, at U, nontender. Dressing is clean, dry, intact. Mild lochia. Extremities with trace edema and nontender. Objective Labs 08/08/24 06:25 08/06/24 17:20 Labs: Laboratory Results - last 24 hr 08/08/24 06:25 WBC 12.1 H RBC 3.32 L Hgb 10.1 L Hct 30.4 L MCV 91.4 MCH 30.5 MCHC 33.4 RDW 12.8 Plt Count 151 Neut % (Auto) 88.2 H Lymph % (Auto) 7.1 L [place] % (Auto) 4.2 Eos % (Auto) 0.0 L Baso % (Auto) 0.5 Neut # (Auto) 80336 H Lymph # (Auto) 900 L [place] # (Auto) 500 Eos # (Auto) 0 Baso # (Auto) 100 Assessment & Plan Plan day: 1 plan OB: routine postop care Time-Based Coding :: [TOTAL MINUTES] spent with patient and on the chart (including review of chart, obtaining history, exam, reviewing outside data, placing orders, documenting exam and treatment plan, and counseling patient) on [DATE].
[2024-08-08] MEDS: LANOLIN OINT 7 GM 1 APPLIC TOP (20:03)
[2024-08-08] MEDS: IBUPROFEN 600 MG TABLET PO (22:19)
[2024-08-09] MEDS: ACETAMINOPHEN 325 MG TABLET 650 MG PO ×2 (02:51→10:42)
[2024-08-09] MEDS: DOCUSATE 100 MG CAPSULE PO ×2 (03:06→09:07)
[2024-08-09] MEDS: IBUPROFEN 600 MG TABLET PO (06:15)
--- NOTE | 2024-08-09 07:39 | P.DS_ITS ---
Discharge Providers Provider Date of admission: 08/05/24 19:44 Discharge Date: 08/09/24 Primary care physician: Doctor Salena MD Consults: 08/07/24 22:27 Consult to [employer] Programmer Routine Comment: Discharge provider: Kera Hernandez MD Summary Hospital Course Date Patient Seen: 08/09/24 Time Patient Seen: 07:39 Diagnoses: Advanced maternal age, GDM A2, failure to progress in labor Hospital Course: Patient was admitted on August 05 for Cytotec induction for advanced maternal age and GDM A2. She received 4 doses of Cytotec and had a Patricio bulb placed. Patient eventually started on Pitocin. Patient had failure to progress in labor and underwent a primary low-transverse section on 08/07/2024. Patient is ambulatory, she denies headaches, scotomata, epigastric pain. She is without difficulty. Pain is under control. She is passing gas. Mild lochia. Routine preeclampsia, infection, bleeding, DVT instructions reviewed with the patient. Peripartum Data Delivery Method: Section complications: none 1: Gender: Female Disposition of : home Discharge Diagnosis (1) Delivery by section using transverse incision of lower segment of uterus: Status: Acute (2) Gestational diabetes mellitus, class A2: Status: Acute (3) Advanced maternal age (AMA), 40 years or greater: Status: Acute (4) Acute blood loss anemia: Status: Acute Status at Discharge Cognitive/behavioral status at discharge: oriented Functional status at discharge: independent ambulation Overall status at discharge: patient is progressing back to baseline Time Spent with Patient Time attestation: Total time spent providing and/or coordinating discharge services: Objective Labs 08/08/24 06:25 08/06/24 17:20 Exam Vital Signs (past 8 hours): Blood pressure 136/74, pulse 94, temperature 97.6? Oxygen Delivery Method Room Air Narrative Exam Narrative: Abdomen is soft, nontender with mild distention. Uterus is firm, at U, nontender. Dressing is clean, dry, intact. Mild lochia. Extremities without edema and nontender. Discharge Plan Discharge Plan Patient Disposition: Home Discharge orders & Medications Prescriptions: New docusate sodium 100 mg Capsule 100 mg PO DAILY Qty: 30 0RF ferrous sulfate 325 mg (65 mg iron) Tablet 325 mg PO DAILY Qty: 30 0RF ibuprofen 600 mg Tablet 600 mg PO Q6H Qty: 30 0RF oxycodone 5 mg Tablet 5 mg PO PACUNOW PRN (Reason: Mild or moderate pain) Qty: 20 0RF oxycodone 5 mg tablet 5 mg PO Q4H PRN (Reason: pain) Qty: 20 0RF Continued vit-ferrous sulfat-FA 27 mg iron- 0.8 mg tablet PO Discontinued Humulin N NPH Insulin KwikPen 100 unit/mL (3 mL) insulin pen 18 unit SUBCUT .qhs Rx Instructions: inject 16 units every night before bed No Action (DME) pen needle, diabetic [Comfort EZ Pen [place]] 31 gauge x 5/16 needle See Rx Instructions .Route Qty: 100 2RF Rx Instructions: As directed Follow up/Referrals: Sylwia Valenzuela MD [Physician] - (Your one week incision check is scheduled with Dr. Valenzuela for August 14 @12:00pm. Your four week follow up appointment is scheduled for September 05 @10:30am.) Sharron Perez DO [Physician] - 1 Week (Aquacel removal) Diet/Activity/Treatments Diet: Regular Activity: Nothing in vagina or lifting over 20 lb for 6 weeks Skin/Wound/Dressing Care Report to your healthcare provider any signs of infection, such as:: chills, fever and increased pain Dressing: Leave dressing on until 1 week post exam Visit Report/Discharge Packet Stand Alone Forms: Discharge: Care, Patient Portal/API, Stroke Signs & Symptoms Discharge Data Primary Care Provider: Miscellaneous,Doctor
[2024-08-09] MEDS: PRENATAL VIT,CALC/IRON/FOLIC 1 TABLET 1 TAB PO (09:08)
[2024-08-09] MEDS: FERROUS SULFATE 325 MG TABLET PO (09:08)
[2024-08-09 11:00] VITALS: BP 122/63; PULSE 82; RESP 12; TEMP 36.4
== END 2024-08-09 11:00 | disposition home or self-care (01) | DRG 787 ==
PROVIDERS: Family Medicine; Admitting Provider Student in an Organized Health Care Education/Training Program; Referring Provider Student in an Organized Health Care Education/Training Program; Visit Provider Student in an Organized Health Care Education/Training Program
PROC: 10D00Z1 Extraction of Products of Conception, Low, Open Approach (ICD-10-PCS; CPT 59514; principal; 2024-08-07 19:45)
DX: O24.424 Gestational diabetes mellitus in childbirth, insulin controlled (principal); D62 Acute posthemorrhagic anemia; O61.0 Failed medical induction of labor; Z3A.40 40 weeks gestation of pregnancy; Z37.0 Single live birth; Z67.10 Type A blood, Rh positive; O99.02 Anemia complicating childbirth
CPT/HCPCS: 36415; 59050; 59200; 59514; 59515; 80053; 82570; 82962; 84156; 84550; 85025; 86850; 86900; 86901; G0379; J0131; J0690; J1100; J1815; J1885; J2274; J2405; J2590